=== PATIENT | female | born 1970 | race American Indian/Alaskan Native ===

== ENCOUNTER 2025-06-18 21:51 | Emergency (ER) | payer MEDICAID, SELFPAY ==
[2025-06-18 22:37] VITALS: BP 119/80; PULSE 111; RESP 19; TEMP 37; O2SAT 94
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
--- NOTE | 2025-06-19 01:07 | PRELIM_ITS ---
CT scan of the head without intravenous contrast (axial sections with sagittal and coronal reformats) June 19, 2025 0027 hours Clinical History: Fall Comparison: No prior study is available for comparison. Findings: There is no evidence of intracranial hemorrhage, mass effect or midline shift. There are periventricular white matter hypodensities, compatible with chronic small vessel ischemia. There is mild volume loss. The calvarium is intact. There is a small retention cyst or polyp in the left maxillary sinus. The mastoid air cells and other visualized paranasal sinuses are clear.There is a small soft tissue hematoma in the right periorbital region. Impression: No evidence of intracranial hemorrhage, midline shift or calvarial fracture. Periventricular chronic small vessel ischemia and volume loss. Other findings as described above. Report Electronically Signed By: Keith Wagoner 06/19/2025 1:06:35 AM [EST]
--- NOTE | 2025-06-19 01:07 | PRELIM_ITS ---
CT scan of the cervical spine without intravenous contrast (axial sections with sagittal and coronal reformats) June 19, 2025 0027 hours Clinical History: Fall Comparison: No prior study is available for comparison. Findings: There is no fracture or subluxation. There is minimal anterolisthesis of C3 on C4 and C4 on C5.There are multilevel degenerative changes in the form of marginal osteophytes, decreased disc height, uncinate process and facet arthrosis, most prominent at C4-C5, C5-C6 and C6-C7 levels causing mild spinal canal and bilateral neural foraminal narrowing.The prevertebral soft tissues are unremarkable. Impression: No evidence of fracture or subluxation. Degenerative changes as described above. Report Electronically Signed By: Keith Wagoner 06/19/2025 1:07:26 AM [EST]
--- NOTE | 2025-06-19 01:12 | PRELIM_ITS ---
CT maxillofacial without intravenous contrast (axial sections with sagittal and coronal reformats). June 19, 2025 0027 hours Clinical History: Fall. Comparison: No prior study is available for comparison. Findings: There is no fracture. The maxillary sinus and orbital ramirez are intact. No fluid levels are seen. No evidence of intraorbital hematoma, proptosis, globe injury or radiodense foreign body. The zygomatic arches and mandible are intact. There is a small soft tissue hematoma in the right periorbital region. Impression: No maxillofacial fracture. Report Electronically Signed By: Keith Wagoner 06/19/2025 1:12:05 AM [EST]
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
--- NOTE | 2025-06-19 01:55 | PRELIM_ITS ---
Radiographs of the left knee joint ( 3 views). June 19, 2025 0000 hours Clinical History: Fall No prior study is available for comparison. Findings: There is no evidence of fracture or dislocation. The tibiofemoral and patellofemoral knee joint spaces are mildly decreased and associated with small periarticular osteophytes and subchondral sclerosis. There is no significant joint effusion. Impression: No evidence of fracture or dislocation. Mild osteoarthritis of the left knee joint. Report Electronically Signed By: Douglas Delgado 06/19/2025 1:54:41 AM [EST]
--- NOTE | 2025-06-19 01:56 | PRELIM_ITS ---
Radiographs of the left ist digit ( 3 views). June 19, 2025 0000 hours Clinical history: L thumb pain No prior study is available for comparison. Findings: There is no evidence of fracture or dislocation. The visualized bones are of normal configuration and density. The visualized joints are maintained. The periarticular soft tissues are normal. Impression: No evidence of fracture or dislocation. Report Electronically Signed By: Douglas Delgado 06/19/2025 1:55:36 AM [EST]
--- NOTE | 2025-06-19 02:10 | PRELIM_ITS ---
Radiographs of bilateral elbow joints (3 views, Left and Right- 6 images ). June 19, 2025 0000 hours Clinical history: Fall No prior study is available for comparison. Findings: There is no evidence of fracture or dislocation. The elbow joint is normal in configuration and alignment. The visualized bones are of normal configuration and density. The periarticular soft tissues are normal. Impression: No evidence of fracture or dislocation. Report Electronically Signed By: Douglas Delgado 06/19/2025 2:09:35 AM [EST]
[2025-06-19 02:49] VITALS: RESP 18
== END 2025-06-19 02:50 | disposition home or self-care (01) ==
PROVIDERS: Emergency Provider Emergency Medicine; PCP Physician Assistant
DX: S00.83XA Contusion of other part of head, initial encounter (principal); S10.93XA Contusion of unspecified part of neck, initial encounter; S00.11XA Contusion of right eyelid and periocular area, initial encounter; S20.219A Contusion of unspecified front wall of thorax, initial encounter; S50.02XA Contusion of left elbow, initial encounter; S50.01XA Contusion of right elbow, initial encounter; S60.012A Contusion of left thumb without damage to nail, initial encounter; S80.02XA Contusion of left knee, initial encounter; S70.01XA Contusion of right hip, initial encounter; V19.3XXA Pedal cyclist (driver) (passenger) injured in unspecified nontraffic accident, initial encounter; Y93.55 Activity, bike riding; S80.211A Abrasion, right knee, initial encounter; S80.212A Abrasion, left knee, initial encounter
CPT/HCPCS: 12011; 70450; 70486; 71045; 72125; 73080; 73140; 73502; 73562; 99283

== ENCOUNTER 2025-07-13 03:57 | Emergency (ER) | payer MEDICAID, SELFPAY ==
[2025-07-13 03:57] VITALS: BMI 33.2
[2025-07-13 04:05] VITALS: BP 111/72; PULSE 103; RESP 20; TEMP 36.8; O2SAT 97
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
== END 2025-07-13 07:05 | disposition left against medical advice (07) ==
PROVIDERS: Emergency Provider Emergency Medicine
DX: Z11.3 Encounter for screening for infections with a predominantly sexual mode of transmission (principal); Z53.29 Procedure and treatment not carried out because of patient's decision for other reasons
CPT/HCPCS: 81001; 86703; 86780; 87491; 87591; 87661; 99281

== ENCOUNTER 2025-07-13 11:07 | Emergency (ER) | payer MEDICAID, SELFPAY ==
[2025-07-13 11:56] VITALS: BP 111/76; PULSE 105; RESP 19; TEMP 37.1; O2SAT 96
[2025-07-13 12:05] VITALS: BMI 26.0
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
--- NOTE | 2025-07-13 13:54 | PC.NURSE ---
CALLED FOR PT FROM LOBBY/OUTSIDE, NO ANSWERX1@ [phone]
[2025-07-13 14:03] LABS: HIV Rapid (Source Pt) Non-Reactive
[2025-07-13 14:21] LABS: Syphilis Reactive (Nonreactive)
[2025-07-13 14:22] LABS: MHATP/TP-PA* See Sep Rpt
--- NOTE | 2025-07-13 15:06 | PC.NURSE ---
CALLED PATIENT IN THE LOBBY AND OUTSIDE, NO ANSWER RECIEVED.
--- NOTE | 2025-07-13 16:15 | PC.NURSE ---
CALLED PATIENT IN THE LOBBY AND OUTSIDE, NO ANSWER RECEIVED.
== END 2025-07-13 16:16 | disposition left against medical advice (07) ==
PROVIDERS: Emergency Provider Emergency Medicine
DX: Z20.2 Contact with and (suspected) exposure to infections with a predominantly sexual mode of transmission (principal); Z53.29 Procedure and treatment not carried out because of patient's decision for other reasons
CPT/HCPCS: 36415; 81001; 86780; 99282

== ENCOUNTER 2025-07-16 05:03 | Emergency (ER) | payer MEDICAID, SELFPAY ==
[2025-07-16 05:04] VITALS: BP 115/77; PULSE 97; RESP 18; TEMP 36.8; O2SAT 96; BMI 28.7
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
--- NOTE | 2025-07-16 09:10 | PC.NURSE ---
PT WAS CALLED INSIDE ED LOBBY, OUTSIDE OF LOBBY; NO RESPONSE AT THIS TIME
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
[2025-07-16 10:00] VITALS: BP 112/70; PULSE 63; RESP 18; TEMP 36.5; O2SAT 98
== END 2025-07-16 10:00 | disposition home or self-care (01) ==
PROVIDERS: Emergency Provider Emergency Medicine
DX: S30.1XXA Contusion of abdominal wall, initial encounter (principal); M25.472 Effusion, left ankle; M79.605 Pain in left leg; M54.2 Cervicalgia; R51.9 Headache, unspecified; V09.9XXA Pedestrian injured in unspecified transport accident, initial encounter
CPT/HCPCS: 70450; 71250; 72125; 73600; 74176; 99284

== ENCOUNTER 2025-08-08 09:41 | Emergency (ER) | payer MEDICAID, SELFPAY ==
[2025-08-08 09:48] VITALS: BP 122/86; PULSE 99; RESP 18; TEMP 36.8; O2SAT 95; BMI 34.3
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
--- NOTE | 2025-08-08 11:37 | PD.EDRME ---
Rapid Medical Screening Exam RME Arrival date/time: 08/08/25 09:41 55-year-old female presents emergency department requesting test Chief Complaint: General Adult/Misc Complain Time Seen by Provider: 08/08/25 09:47 Vital signs: Vital Signs Temperature 98.2 F 08/08/25 09:48 Pulse Rate 99 08/08/25 09:48 Respiratory Rate 18 08/08/25 09:48 Blood Pressure 122/86 H 08/08/25 09:48 Pulse Oximetry (%) 95 08/08/25 09:48 Oxygen Delivery Method Room Air 08/08/25 09:48
== END 2025-08-08 11:33 | disposition left against medical advice (07) ==
PROVIDERS: Emergency Provider Family Medicine
DX: Z04.89 Encounter for examination and observation for other specified reasons (principal); Z53.29 Procedure and treatment not carried out because of patient's decision for other reasons
CPT/HCPCS: 81025; 99281

== ENCOUNTER 2025-10-04 00:09 | Emergency (ER) | payer MEDICAID, SELFPAY ==
[2025-10-04 00:10] VITALS: BMI 34.2
[2025-10-04 00:47] VITALS: BP 118/80; PULSE 103; RESP 18; TEMP 36.6; O2SAT 95
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
[2025-10-04] MEDS: NAPROXEN 250 MG TABLET 500 MG PO (00:57)
[2025-10-04] MEDS: BACLOFEN 10 MG TABLET PO (00:58)
== END 2025-10-04 01:01 | disposition home or self-care (01) ==
PROVIDERS: Emergency Provider Emergency Medicine; PCP Physician Assistant
DX: M79.645 Pain in left finger(s) (principal); M25.562 Pain in left knee; M25.561 Pain in right knee; V89.2XXS Person injured in unspecified motor-vehicle accident, traffic, sequela
CPT/HCPCS: 99281; A9270

== ENCOUNTER 2025-11-20 01:33 | Emergency (ER) | payer MEDICAID, SELFPAY ==
[2025-11-20 01:33] VITALS: BMI 34.2
[2025-11-20 01:45] VITALS: BP 124/79; PULSE 103; RESP 19; TEMP 36.8; O2SAT 95
--- NOTE | 2025-11-20 01:57 | EKG_ITS ---
[facility] Test Date: 2025-11-20 Pat Name: LILIBETH HALL Department: Room: - Gender: Female Personal Injury Law Specialist: : 1970 Requested By: Drake Moore Order Number: [id number] Reading MD: Drake Moore Measurements Intervals Mcclellan Rate: 93 P: 41 MA: 132 QRS: -2 QRSD: 80 T: 40 QT: 344 QTc: 428 Interpretive Statements SINUS RHYTHM POSSIBLE ANTERIOR MYOCARDIAL INFARCTION , PROBABLY OLD [30 ms Q WAVE IN V3/V4, OR R < 0.2 mV IN V4] No previous ECG available for comparison /store/S0/[id number]/ecg/[id number].pdf
--- NOTE | 2025-11-20 01:58 | XR_ITS ---
EXAMINATION: PA chest single view TECHNIQUE: Upright PA chest single view Date and time: November 20, 2025, 0204 hours, comparison June 19, 2025 INDICATIONS: Flu symptoms beginning 3 days ago. FINDINGS: Normal heart size Minor accentuation of the basilar bronchovascular markings No lobar pneumonia or pulmonary edema IMPRESSION: Minor accentuation of the basilar bronchovascular markings
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
[2025-11-20 02:17] LABS: Basophils # (Auto) 0.0 Thou/mm3 (0.0-0.2); Basophils % (Auto) 1 % (0-2.5); Eosinophils # (Auto) 0.2 Thou/mm3 (0.0-0.5); Eosinophils % (Auto) 3 % (0-10); Hematocrit 40.9 % (36.0-46.0); Hemoglobin 13.1 g/dL (12.0-16.0); Immature Granulocytes Auto 0.01 Thou/mm3 (0.00-0.00); Lymphocytes # (Auto) 2.6 Thou/mm3 (1.0-4.8); Lymphocytes % (Auto) 41 % (10-50); Mean Corpuscular HGB Conc 32.0 g/dl (31.0-37.0); Mean Corpuscular Hemoglobin 28.7 pg (25.0-35.0); Mean Corpuscular Volume 90 fL (80-100); Monocytes # (Auto) 0.7 Thou/mm3 (0.0-0.8); Monocytes % (Auto) 11 % (0-12); Neutrophils # (Auto) 3.0 Thou/mm3 (1.8-7.7); Neutrophils % (Auto) 46 % (37-80); Nucleated Red Blood Cell # 0.00 Thou/mm3 (0.00-0.00); Nucleated Red Blood Cell % 0 /100 WBC (0); Platelet Count 267 Thou/mm3 (140-440); RDW Standard Deviation 44.1 fL (36.4-46.3); Red Blood Count 4.56 Miln/mm3 (4.00-5.20); White Blood Count 6.5 Thou/mm3 (3.6-11.0)
[2025-11-20 02:34] LABS: D-Dimer 573 ng/mL (<600)
[2025-11-20 02:43] LABS: Alanine Aminotransferase 21 U/L (10-49); Albumin, Serum 4.4 gm/dL (3.5-5.0); Albumin/Globulin Ratio 1.4 (1.2-2.2); Alkaline Phosphatase 105 U/L (46-116); Anion Gap 11 (7-16); Aspartate Amino Transferase 27 U/L (0-34); BUN/Creatinine Ratio 21 Ratio (12-20); Bilirubin,Total 0.4 mg/dL (0.3-1.2); Blood Urea Nitrogen 17 mg/dL (9-23); Calcium 8.7 mg/dL (8.3-10.6); Calcium (Corrected) 8.7 mg/dL (8.5-10.1); Carbon Dioxide 25.6 mMol/L (20.0-31.0); Chloride 108 mMol/L (98-107); Creatinine (Component) 0.8 mg/dL (0.6-1.3); Estimated Creatinine Clearance 73.2 mL/min (>60); Globulin 3.1 gm/dL (2.3-3.5); Glucose 92 mg/dL (74-106); Osmolality,Calculated 290 (275-295); Potassium 4.1 mMol/L (3.4-5.1); Sodium 145 mMol/L (136-145); Total Protein 7.5 gm/dL (5.7-8.2); Troponin I < 0.020 ng/mL (0.0-0.045); eGFR > 60 See Note
--- NOTE | 2025-11-20 03:41 | PRELIM_ITS ---
Radiograph of the chest (single view). November 20, 2025 at 0200 hours Clinical history: Cough and shortness of breath. Comparison: No prior study is available for comparison. Findings: A 1 cm nodular density adjacent to the left heart border. Clear right lung. No pleural effusion or pneumothorax. Impression: No definite acute process. Possible left pulmonary nodule. Recommend follow-up. Report Electronically Signed By: Dickson Low 11/20/2025 3:40:27 AM [EST]
[2025-11-20 03:57] VITALS: BP 139/84; PULSE 85; RESP 17; TEMP 36.5; O2SAT 97
== END 2025-11-20 04:15 | disposition home or self-care (01) ==
PROVIDERS: Physician Assistant; Emergency Provider Emergency Medicine; PCP Nurse Practitioner Family
DX: J06.9 Acute upper respiratory infection, unspecified (principal); R94.31 Abnormal electrocardiogram [ECG] [EKG]; F17.200 Nicotine dependence, unspecified, uncomplicated
CPT/HCPCS: 36415; 71045; 80053; 84484; 85025; 85379; 87502; 87635; 93005; 99283; J1100